=== PATIENT | female | born 1940 | race Caucasian/White ===

== ENCOUNTER 2018-07-10 08:13 | Day surgery (SDC) | payer MEDICARE, MEDICAID ==
[2018-07-10] MEDS ORDERED: Lactated Ringer's 500 ML IV ONE (08:42)
[2018-07-10 08:47] VITALS: BMI 26.2
[2018-07-10 10:01] VITALS: O2SAT 100
[2018-07-10] MEDS ORDERED: Propofol 10 mg/ml Inj (20 ML) ONE (11:02)
[2018-07-10 11:47] VITALS: PULSE 59; TEMP 97
[2018-07-10 12:04] VITALS: BP 115/59; RESP 24
== END 2018-07-10 12:25 | disposition home or self-care (01) ==
LOC: H.ENDO 08:13
PROVIDERS: ATTEND Internal Medicine Gastroenterology
DX: Z12.11 Encounter for screening for malignant neoplasm of colon (principal); J45.909 Unspecified asthma, uncomplicated; K64.1 Second degree hemorrhoids; D12.3 Benign neoplasm of transverse colon
CPT/HCPCS: 45385; J2001; J2704; J7120